=== PATIENT | female | born 1940 | race Caucasian/White ===

== ENCOUNTER → 2016-06-07 | Outpatient (CLI) | payer OTHER | LOC: BHFA 13:00 | PROVIDERS: ATTEND Internal Medicine Cardiovascular Disease | DX: Z01.810 Encounter for preprocedural cardiovascular examination (principal) | CPT/HCPCS: 78452; 93017; A9500; J2785 ==

== ENCOUNTER → 2016-07-03 | Outpatient (CLI) | payer OTHER | LOC: FIMAGING 12:26 | PROVIDERS: ATTEND Physician Assistant | DX: M48.06 Spinal stenosis, lumbar region (principal); M51.86 Other intervertebral disc disorders, lumbar region; Z98.1 Arthrodesis status ==

== ENCOUNTER 2018-04-18 09:29 | Day surgery (SDC) | payer OTHER ==
--- NOTE | 2018-04-18 08:35 | PDHPUP ---
History & Physical Update H&P update statement: This history and physical update is based on an assessment of the patient which was completed after admission or registration (within 24 hours), but prior to the surgery/procedure. H&P update: H&P reviewed & patient examined, no change in patient's condition since H&P completed
[2018-04-18] MEDS ORDERED: BUPIVACAINE/EPI 0.5% 30 ML SDV ONE (09:32)
[2018-04-18] MEDS ORDERED: LR 1,000 ML IV ONE (09:49)
--- NOTE | 2018-04-18 10:08 | POSTOPPROG ---
Post Op Note Date of Operation: 04/18/18 Surgeon: Ben Lowery Safety Scientist: Maria Del Carmen Casillas PA-C Anesthesia: GET(General Endotracheal) Pre-op Diagnosis: Ventral hernia Post-op Diagnosis: same Procedure: Laparoscopic ventral hernia repair with mesh Inf/Abcess present in the surg proc area at time of surgery?: No EBL: Minimal Complications: no immediate Specimen(s): none
[2018-04-18] MEDS ORDERED: ALBUTEROL 3 ML DEYVIAL ONE (10:24)
[2018-04-18] MEDS ORDERED: PROPOFOL 200 MG/20 ML VIAL ONE ×2 (10:29)
[2018-04-18] MEDS ORDERED: MIDAZOLAM 2 MG/2 ML VIAL ONE (10:29)
[2018-04-18] MEDS ORDERED: DEXMEDETOMIDINE HCL 200 MCG in NS 50 ML IV ONE (10:30)
[2018-04-18] MEDS ORDERED: ALBUMIN 5% 250 ML BOTTLE IV ONE (10:43)
[2018-04-18] MEDS ORDERED: MAGNESIUM SULFATE 1 GM/2 ML VIAL ONE (10:43)
--- NOTE | 2018-04-18 10:50 | PDHOMEO2F ---
Home Oxygen Face to Face Home Orders: I certify that a physician or a nurse practitioner or physician's child center assistant has had a [id number] encounter with this patient on the date of this order due to the diagnosis listed, which relates to the primary reason the patient requires home oxygen. Alternative treatments have been tried, or considered, and deemed ineffective. It is anticipated that supplemental oxygen will result in improvement with treatment. Home oxygen qualifying diagnosis: COPD SpO2 on room air (%): 89 Frequency of home oxygen needed: continuous Home oxygen liters per minute: 2 Home oxygen delivery device: nasal cannula Concentrator: Yes E-tanks for mobility and back up: Yes If ordering portable O2, is the patient mobile in the home?: Yes I certify that, based on these findings, the home oxygen is medically necessary for this patient for the following length of time. Length of time home oxygen needed: 1 month
[2018-04-18] MEDS ORDERED: DEXAMETHASONE 4 MG/ML VIAL IVP PRN (10:57)
[2018-04-18] MEDS ORDERED: ALBUTEROL 3 ML DEYVIAL IH PRN (10:57)
[2018-04-18] MEDS ORDERED: ONDANSETRON 4 MG/2 ML VIAL IVP PRN (10:57)
[2018-04-18] MEDS ORDERED: LR 500 ML IV PRN (10:57)
[2018-04-18] MEDS ORDERED: NALOXONE HCL 0.4 MG/ML INJ IVP PRN (10:57)
--- NOTE | 2018-04-18 10:57 | PDANEPAE ---
ANE Past Medical History - Cardiovascular History Hx Hypertension: Yes Hx Arrhythmias: No Hx Chest Pain: No Hx Coronary Artery / Peripheral Vascular Disease: Yes Hx CHF / Valvular Disease: No Hx Palpitations: No Cardiovascular History Comment: PVC'S, PAD LOWER EXTREMITIES - Pulmonary History Hx COPD: No Hx Asthma/Reactive Airway Disease: No Hx Recent Upper Respiratory Infection: No Hx Oxygen in Use at Home: No Hx Sleep Apnea: No Sleep Apnea Screening Result - Last Documented: Negative - Neurologic History Hx Cerebrovascular Accident: No Hx Seizures: No Hx Dementia: No Neurologic History Comment: sciatic pain r/t L3-4 disc herniation, left leg down to foot - Endocrine History Hx Diabetes: Yes Endocrine History Comment: hypothyroid - Renal History Hx Renal Disorders: No Renal History Comment: frequency - Liver History Hx Hepatic Disorders: No - Neurological & Psychiatric Hx Hx Neurological and Psychiatric Disorders: No - Cancer History Hx Cancer: No - Congenital Disorder History Hx Congenital Disorders: No - GI History Hx Gastrointestinal Disorders: Yes Gastrointestinal History Comment: GERD - Other Health History Other Health History: wears glasses for reading. upper and lower dentures - Chronic Pain History Chronic Pain: Yes (left back down to foot) - Surgical History Prior Surgeries: bilateral breast reduction 1996. 2011 L4-5 FUSION. 2012 NINA BYPASS FEM-POP. 2003 COLON MASS RESECTION ANE Review of Systems Review of Systems: - Exercise capacity METS (RN): 4 METS ANE Patient History - Allergies Allergies/Adverse Reactions: adhesive tape [Adhesive Tape] Allergy (Verified 03/16/18 11:18) EXTREME RED SKIN/ IRRITATION amoxicillin [Amoxicillin] Allergy (Verified 03/16/18 11:18) All "cillins" - visual changes, tingling ciprofloxacin [From Cipro] Allergy (Verified 03/16/18 11:18) Vomiting hydrocodone bitartrate [From Vicodin] Allergy (Verified 03/16/18 11:18) Itching burning skin hydromorphone [From Dilaudid] Allergy (Verified 03/16/18 11:18) hallucinations Penicillins Allergy (Verified 03/16/18 11:18) All "cillins" - visual changes, tingling - Home Medications Home Medications: Atorvastatin Calcium [Lipitor 20 mg (*)] DAILY 09/26/12 [Last Taken 04/17/18] Levothyroxine [Synthroid 88 mcg (*)] DAILY06 09/26/12 [Last Taken 04/18/18] Lisinopril [Zestril 20 mg (*)] DAILY 09/26/12 [Last Taken 04/17/18] Sertraline HCl [Zoloft 100mg (*)] DAILY 09/26/12 [Last Taken 04/17/18] Atenolol [Tenormin 100 mg (*)] DAILY 04/09/16 [Last Taken 04/18/18] Clopidogrel Bisulfate [Plavix (*)] DAILY 04/09/16 [Last Taken 04/12/18] Esomeprazole Mag Trihydrate [Nexium] BID 04/09/16 [Last Taken 04/18/18] amLODIPine BESYLATE [Norvasc 10 mg (*)] DAILY 04/09/16 [Last Taken 04/18/18] metFORMIN SR [Glucophage XR 750 mg (*)] DAILY@1800 04/09/16 [Last Taken 04/17/18 ] - NPO status NPO Since - Liquids (Date): 04/18/18 NPO Since - Liquids (Time): 07:30 NPO Since - Solids (Date): 04/17/18 - Smoking Hx Smoking Status: Current some day smoker - Family Anes Hx Family Hx Anesthesia Complications: none ANE Labs/Vital Signs - Vital Signs Blood Pressure: 148/83 Heart Rate: 72 Respiratory Rate: 16 O2 Sat (%): 90 Height: 162.56 cm Weight: 58.06 kg ANE Physical Exam - Airway Neck exam: FROM Mallampati Score: Class 1 Mouth exam: dentures - Pulmonary Pulmonary: reduced air movement, expiratory wheeze - Cardiovascular Cardiovascular: regular rate and rhythym, no murmur, rub, or gallop - ASA Status ASA Status: III, IV ANE Anesthesia Plan Anesthesia Plan: general endotracheal anesthesia
[2018-04-18] MEDS ORDERED: ALBUTEROL 3 ML DEYVIAL IH ONE (11:00)
[2018-04-18] MEDS ORDERED: ROCURONIUM 50 MG/5 ML VIAL ONE (11:19)
[2018-04-18] MEDS ORDERED: ONDANSETRON 4 MG/2 ML VIAL ONE (11:19)
[2018-04-18] MEDS ORDERED: RANITIDINE 50 MG/2 ML VIAL ONE (11:19)
[2018-04-18] MEDS ORDERED: DEXAMETHASONE 4 MG/ML VIAL ONE (11:19)
[2018-04-18] MEDS ORDERED: SUGAMMADEX SODIUM 200 MG/2 ML VIAL IVP ONE (11:19)
[2018-04-18] MEDS ORDERED: ENALAPRILAT DIHYDRATE 1.25 MG/ML VIAL ONE (11:21)
[2018-04-18] MEDS ORDERED: CITRATE DEXTROSE SOLN 500 ML BAG ONE (12:13)
--- NOTE | 2018-04-18 12:25 | GOP ---
DATE OF OPERATION: 04/18/2018 SURGEON: Ben Lowery MD SUBSEA ENGINEER: Maria Del Carmen Casillas PA-C. ANESTHESIA: General. ANESTHESIOLOGIST: Dr. Alfredo. PREOPERATIVE DIAGNOSIS: Recurrent incisional hernia. POSTOPERATIVE DIAGNOSIS: Recurrent incisional hernia. PROCEDURE PERFORMED: Laparoscopic incisional herniorrhaphy. INDICATIONS: 77-year-old female with a symptomatic incisional hernia. She is undergoing surgical repair at this time. Risks and benefits were explained of bleeding, infection, recurrence, bowel injury, as well as open conversion. All questions were answered. She desires to proceed. A surgical services director is standard and necessary and customary for the safe performance of this. DESCRIPTION OF PROCEDURE: After general anesthesia was induced, the abdomen was preinjected with 0.5% Marcaine with epinephrine. A prior left paraumbilical incision was reopened. A 2 cm hernia sac was present with reducible omentum. The sac was cleared back to healthy-appearing fascial edges. The abdominal cavity was directly entered allowing for 10 mm trocar placement. The abdomen was insufflated to 15 mmHg. Three additional 5 mm ports were placed along the bilateral lower quadrants. The omentum was taken off the abdominal wall using the ultrasonic dissector. A 10 x 15 cm Symbotex mesh was inserted in the abdominal cavity and anchored with multiple absorbable tacks circumferentially allowing for complete coverage of the prior midline incision. Trocars were removed under direct visualization. The periumbilical defect was closed transversely with a running Vicryl suture. The wounds were closed with Monocryl suture followed by Dermabond. The patient was taken to recovery uneventfully. /[id number]/MODL MTDD
[2018-04-18] MEDS ORDERED: HYDROCODONE/APAP 5/325 TAB ONE (12:53)
[2018-04-18] MEDS ORDERED: HYDROCODONE/APAP 5/325 TAB PO PRN (13:21)
[2018-04-18] MEDS ORDERED: OXYCODONE/APAP 5/325 TAB PO ONE (14:15)
[2018-04-18] MEDS ORDERED: oxyCODONE IR 5 MG TAB PO ONE (14:15)
[2018-04-18] MEDS ORDERED: OXYCODONE/APAP 5/325 TAB ONE (15:03)
[2018-04-18 16:41] VITALS: BP 121/69
--- NOTE | 2018-04-19 11:40 | POSTANESTH ---
Post Anesthetic Evaluation Cardiovascular Status: Normal, Stable, Similar to Pre-Op Cond Respiratory Status: Normal, Stable, Similar to Pre-op Cond. Level of Consciousness/Mental Status: Can Participate in Eval Pain Control: Adequate, Prn Tx Ordered Nausea/Vomiting Control: Adequate, Prn Tx Ordered Complications Possibly Related to Anesthesia: None Noted
== END 2018-04-18 17:50 | disposition home or self-care (01) ==
LOC: FSGY 09:29
PROVIDERS: ATTEND Surgery
PROC: 0WUF4JZ Supplement Abdominal Wall with Synthetic Substitute, Percutaneous Endoscopic Approach (ICD-10-PCS; principal; 2018-04-18 10:45)
DX: K43.2 Incisional hernia without obstruction or gangrene (principal); E11.9 Type 2 diabetes mellitus without complications; K21.9 Gastro-esophageal reflux disease without esophagitis; I10 Essential (primary) hypertension; K58.0 Irritable bowel syndrome with diarrhea
CPT/HCPCS: C1781; J1100; J2250; J2270; J2405; J2704; J2780; J3475; J7613; P9041